=== PATIENT | female | born 1940 | race Caucasian/White ===

== ENCOUNTER 2018-03-09 17:07 | Inpatient (IN) | payer MEDICARE, OTHER ==
[~2018-03-09] VITALS: Ht 162.6 cm; Wt 65.8 kg
[2018-03-09] MEDS ORDERED: ACET-2154 PO (18:11)
[2018-03-09] MEDS ORDERED: Z GUARD REMEDY PASTE 57 GM TUBE TOP PRN (18:15)
[2018-03-09] MEDS ORDERED: MAG355OR18 PO (18:16)
[2018-03-09 18:38] VITALS: BP 137/76
[2018-03-09] MEDS ORDERED: BISA10SU8 RC (19:55)
[2018-03-09] MEDS ORDERED: ASPI-869 PO (19:55)
[2018-03-09] MEDS ORDERED: VALS160T2 PO ×2 (19:55→19:56)
[2018-03-09] MEDS ORDERED: CELE200C PO (19:55)
[2018-03-09] MEDS ORDERED: HYDR12.5 PO (19:55)
[2018-03-09] MEDS ORDERED: GLYC-16 RC (19:55)
[2018-03-09] MEDS ORDERED: DOCU-141 PO (19:55)
[2018-03-09] MEDS ORDERED: BENZ1LOZ58 MM (19:55)
[2018-03-09] MEDS ORDERED: BISA-79 PO (19:55)
[2018-03-09] MEDS ORDERED: TRAM50TA2 PO (19:56)
[2018-03-09] MEDS ORDERED: MAGN400T26 PO (19:56)
[2018-03-09] MEDS ORDERED: MULT1TAB73 PO (19:56)
[2018-03-09] MEDS ORDERED: NA P133E RC (19:56)
[2018-03-09] MEDS ORDERED: MAGN400O6 PO (19:56)
[2018-03-09] MEDS ORDERED: ASCO500W7 PO (19:56)
[2018-03-09] MEDS ORDERED: PANT20TA2 PO (19:56)
[2018-03-09] MEDS ORDERED: THYR30TA2 PO (19:56)
[2018-03-09] MEDS ORDERED: ONDA4TAB11 PO (19:56)
[2018-03-09] MEDS ORDERED: SENN-22 PO (19:56)
[2018-03-09] MEDS ORDERED: OXYC-128 PO (19:56)
[2018-03-09] MEDS ORDERED: MINE133E RC (19:56)
[2018-03-09] MEDS ORDERED: POLY17PO4 PO (19:56)
--- NOTE | 2018-03-09 20:00 | NUR ---
Admitting 77 y/o F to ARU with diagnosis of left total knee replacement done by Dr. Cortez on 03/07. No acute distress noted. Arrived on unit at 1720 and received patient from AM shift. Received pt in bed with family at bedside. Noted with original dressing from surgery, dry and intact. Dr. Singh made aware and per MD, follow-up in AM with surgeon office regarding dressing change. Will endorse to AM shift. A/O x 4, verbally responsive and able to make needs known. Informed hospitalist regarding patient admission and medication reconciliation. Breathing even and unlabored, no SOB noted. All safety measures and fall precautions maintained. Call light and all personal belongings within reach at all times. Will continue to monitor. Will endorse to dayshift.
[2018-03-09 20:12] VITALS: BP 143/66
[2018-03-09] MEDS ORDERED: KETOROLAC TROMETHAMINE 30 MG INJ IM ONE (20:45)
[2018-03-09] MEDS: OXYCODONE/APAP 5-325 MG TABLET PO PRN (21:03)
[2018-03-09] MEDS ORDERED: MAG HYDROX/AL HYDROX/SIMETH 30 ML LIQUID UDC PO PRN (23:15)
[2018-03-09] MEDS ORDERED: ONDANSETRON ODT 4 MG TAB.RAPDIS SL PRN (23:15)
[2018-03-09] MEDS ORDERED: MAGNESIUM HYDROXIDE 30 ML LIQUID UDC PO PRN (23:15)
[2018-03-09] MEDS ORDERED: ACETAMINOPHEN 325 MG TABLET PO PRN (23:15)
[2018-03-09] MEDS ORDERED: GLYCERIN PEDIATRIC RECTAL SUPP EACH RC PRN (23:15)
[2018-03-09] MEDS ORDERED: MINERAL OIL FLEET ENEMA 133 ML BOTTLE RC PRN (23:15)
[2018-03-09] MEDS ORDERED: BISACODYL 10 MG SUPP.RECT RC PRN (23:15)
[2018-03-10] MEDS: OXYCODONE/APAP 5-325 MG TABLET PO PRN (04:22)
[2018-03-10 05:48] VITALS: BP 128/44
[2018-03-10] MEDS ORDERED: MINERAL OIL FLEET ENEMA 133 ML BOTTLE RC PRN (07:15)
[2018-03-10] MEDS ORDERED: GLYCERIN PEDIATRIC RECTAL SUPP EACH RC PRN (07:15)
[2018-03-10 07:32] VITALS: BP 106/55
--- NOTE | 2018-03-10 08:00 | NUR ---
Received patient awake, alert x4. Not in any form of distress, with pain over left knee, surgical dressing dry and intact. Call light within reach. Encouraged to call for needs.
[2018-03-10] MEDS ORDERED: Medication Not On Formulary EA (Thyroid (Armour Thyroid) 30 MG) PO SCH (09:00)
[2018-03-10] MEDS ORDERED: HYDROCHLOROTHIAZIDE 12.5 MG CAPSULE PO SCH (09:00)
[2018-03-10] MEDS: VALSARTAN 160 MG TABLET PO SCH (09:00)
[2018-03-10] MEDS ORDERED: Medication Not On Formulary EA (Multivitamins (Multivitamin) 1 EACH) PO SCH (09:00)
[2018-03-10] MEDS ORDERED: DOCUSATE SODIUM 100 MG CAPSULE PO SCH (09:00)
[2018-03-10] MEDS: DOCUSATE SODIUM 250 MG CAPSULE PO SCH ×2 (09:21→17:40)
[2018-03-10] MEDS: MULTIVITAMINS,THERAPEUTIC TABLET PO SCH (09:21)
[2018-03-10] MEDS: ASPIRIN EC 325 MG TABLET.DR PO SCH (09:22)
[2018-03-10] MEDS: CELECOXIB 200 MG CAPSULE PO SCH ×2 (09:22→17:40)
[2018-03-10] MEDS: ASCORBIC ACID 500 MG TABLET PO SCH (09:22)
[2018-03-10] MEDS: MAGNESIUM OXIDE 400 MG TABLET PO SCH (09:22)
[2018-03-10] MEDS: THYROID 60 MG TABLET PO SCH (09:28)
--- NOTE | 2018-03-10 09:30 | NUR ---
Patient refused Amour Thyroid medication, patient said she takes it after breakfast and she will just take medications the next day. Discussed risks and benefits, patient still refused.
[2018-03-10] MEDS ORDERED: HYDROCORTISONE 1% CREAM 30 GM TUBE TP PRN (11:15)
--- NOTE | 2018-03-10 11:15 | NUR ---
On CMP tolerating well at 64 degrees. Patient complained of itching and over upper left thigh area, informed Dr. Singh, hydrocortisone cream 1% TID PRN ordered.
--- NOTE | 2018-03-10 11:30 | NUR ---
Talked with Hanna from Dr. Cortez's clinic to get orders for surgical wound care. Hanna said she will let person involved know of request.
[2018-03-10] MEDS ORDERED: GLYCERIN ADULT RECTAL SUPP EACH RC PRN (11:45)
--- NOTE | 2018-03-10 14:45 | NUR ---
Referred by RN to visit patient for food preferences and appetite. Patient states prefer small portions. Modify diet. Will send darshana shake once. Patient like everything,encourage pt on menu selection. Pt c/o of constipation, will send prune juice TID with meals, on stool softener. Full nutrition assessment will be as per schedule as per policy. Addendum: 03/10/18 at [address] Amended: Links added.
[2018-03-10 15:02] VITALS: BP 124/61
[2018-03-10] MEDS ORDERED: hydrALAZINE HCL 25 MG TABLET PO PRN (18:00)
[2018-03-10 20:21] VITALS: BP 131/61
--- NOTE | 2018-03-10 20:36 | NUR ---
Received pt resting comfortably in bed. AAO x4. No acute distress noted. No c/o pain or discomfort. Pt stated that she had BM 2 days ago and she's been drinking prune juice today. Encouraged use of call light. Safety measures maintained. Call light and personal belongings within reach. Will continue to monitor.
[2018-03-10] MEDS: PANTOPRAZOLE SODIUM 40 MG TABLET.DR PO SCH (20:52)
[2018-03-10] MEDS: MIRALAX 17 GM POWD.PACK PO SCH (20:52)
[2018-03-11 05:48] VITALS: BP 144/63
[2018-03-11] MEDS: THYROID 60 MG TABLET PO SCH (06:33)
--- NOTE | 2018-03-11 06:58 | NUR ---
Pt slept comfortably at night. Meds given per MD's order. All needs attended to promptly. Assisted to the bathroom as needed using walker. Had small BM last night. Will endorse to day shift RN. Continue to monitor.
[2018-03-11 07:18] LABS: BASOPHILS # (AUTO) 0.1 K/uL (0.0-8.0); BASOPHILS % (AUTO) 0.6 % (0.0-2.0); EOSINOPHILS # (AUTO) 0.4 K/uL (0.0-0.7); EOSINOPHILS % (AUTO) 5.4 % (0.0-7.0); HEMOGLOBIN 10.5 g/dL (10.9-14.3); MEAN CORPUSCULAR HEMOGLOBIN 27.2 uug (24.7-32.8); MEAN CORPUSCULAR HGB CONC 33 g/dL (32.3-35.6); MEAN CORPUSCULAR VOLUME 83.2 fL (75.5-95.3); MONOCYTES # (AUTO) 0.8 K/uL (2.0-10.0); MONOCYTES % (AUTO) 9.9 % (0.0-11.0); NEUTROPHILS # (AUTO) 4.7 K/uL (1.8-8.9); NEUTROPHILS % (AUTO) 59.1 % (38.5-71.5); PLATELET COUNT (AUTO) 227 K/uL (179-408); RED BLOOD CELL COUNT(AUTO) 3.84 MIL/uL (3.63-4.92); WHITE BLOOD COUNT (AUTO) 7.9 K/uL (3.8-11.8)
[2018-03-11 07:36] LABS: THYROID STIMULATING HORMONE 3.167 mIU/mL (0.358-3.740)
[2018-03-11 08:00] VITALS: BP 129/56
[2018-03-11 08:01] LABS: ALANINE AMINOTRANSFERASE 16 U/L (14-59); ALKALINE PHOSPHATASE 66 U/L (50-136); ASPARTATE AMINOTRANSFERASE 22 U/L (15-37); BILIRUBIN,TOTAL 1.1 mg/dL (0.2-1.0); CARBON DIOXIDE 30 mmol/L (21-32); CHLORIDE 105 mmol/L (98-107); CHOLESTEROL 150 mg/dL (<200); CREATININE 0.8 mg/dL (0.6-1.3); GLUCOSE 94 mg/dL (74-106); HDL CHOLESTEROL 57 mg/dL (40-60); MAGNESIUM 2.2 mg/dL (1.8-2.4); PHOSPHOROUS 3.5 mg/dL (2.5-4.9); POTASSIUM 4.5 mmol/L (3.5-5.1); TOTAL PROTEIN, SERUM 6.3 g/dL (6.4-8.2); TRIGLYCERIDES 62 MG/DL (30-150); UREA NITROGEN, BLOOD 11 mg/dL (7-18)
--- NOTE | 2018-03-11 08:30 | NUR ---
Received patient awake, alert x3-4. Patient complained of pain over left knee rated as 9/10 upon movement. Not in any form of distress. Call light within reach. Encouraged to call for needs.
[2018-03-11] MEDS: DOCUSATE SODIUM 250 MG CAPSULE PO SCH ×2 (08:31→17:15)
[2018-03-11] MEDS: MULTIVITAMINS,THERAPEUTIC TABLET PO SCH (08:31)
[2018-03-11] MEDS: MAGNESIUM OXIDE 400 MG TABLET PO SCH (08:31)
[2018-03-11] MEDS: ASPIRIN EC 325 MG TABLET.DR PO SCH (08:31)
[2018-03-11] MEDS: OXYCODONE/APAP 5-325 MG TABLET PO PRN ×2 (08:31→21:16)
[2018-03-11] MEDS: CELECOXIB 200 MG CAPSULE PO SCH ×2 (08:32→17:15)
[2018-03-11] MEDS: ASCORBIC ACID 500 MG TABLET PO SCH (08:32)
[2018-03-11] MEDS: VALSARTAN 160 MG TABLET PO SCH (08:32)
--- NOTE | 2018-03-11 11:00 | NUR ---
Per Dr. Cortez, dressing change to be done 1 week after surgery 03/14/18. Said not remove Aquaphor dressing.
--- NOTE | 2018-03-11 13:19 | NUR ---
INTERDISCIPLINARY TEAM CONFERENCE
[2018-03-11 16:03] VITALS: BP 112/57
[2018-03-11 19:30] VITALS: BP 113/68
--- NOTE | 2018-03-11 20:00 | NUR ---
Patient received at bed sitting awake, alert, and oriented x4. No acute distress or SOB was noted. Her daughter was at the bedside. Complained of left knee pain upon movement. Call light and personal belonging within reach. Continue to monitor.
--- NOTE | 2018-03-11 20:30 | NUR ---
The patient was assessed. The skin under her left thigh was red, warm to touch, and mild edema. Dr. Strong was notified. Patient was scheduled tomorrow morning to have an ultrasound to rule out DVT. Continue to monitor.
[2018-03-11] MEDS: PANTOPRAZOLE SODIUM 40 MG TABLET.DR PO SCH (20:42)
[2018-03-11] MEDS: MIRALAX 17 GM POWD.PACK PO SCH (20:44)
--- NOTE | 2018-03-12 06:10 | NUR ---
End of the shift note Patient awake, Alert, and Oriented X4. No acute distress, or SOB was noted. VS are stable. Bed alarm and bed brake on for safety precaution. Two side rails are up. Pain was assessed and reassessed after pain medication administration. Meds given as ordered. Call light and personal belonging within reach. All needs attended. Will endorse accordingly with the day shift nurse to follow up the Doppler ultrasound of left thigh.
[2018-03-12] MEDS: THYROID 60 MG TABLET PO SCH (06:38)
[2018-03-12 08:16] VITALS: BP 126/59
[2018-03-12] MEDS: OXYCODONE/APAP 5-325 MG TABLET PO PRN ×3 (08:45→20:20)
[2018-03-12] MEDS: VALSARTAN 160 MG TABLET PO SCH (08:47)
[2018-03-12] MEDS: ASCORBIC ACID 500 MG TABLET PO SCH (08:48)
[2018-03-12] MEDS: ASPIRIN EC 325 MG TABLET.DR PO SCH (08:48)
[2018-03-12] MEDS: MAGNESIUM OXIDE 400 MG TABLET PO SCH (08:48)
[2018-03-12] MEDS: DOCUSATE SODIUM 250 MG CAPSULE PO SCH ×2 (08:48→17:00)
[2018-03-12] MEDS: MULTIVITAMINS,THERAPEUTIC TABLET PO SCH (08:48)
[2018-03-12] MEDS: CELECOXIB 200 MG CAPSULE PO SCH ×2 (08:48→17:00)
[2018-03-12 15:48] VITALS: BP 119/65
[2018-03-12 19:30] VITALS: BP 138/65
[2018-03-12] MEDS: PANTOPRAZOLE SODIUM 40 MG TABLET.DR PO SCH (20:20)
[2018-03-12] MEDS: MIRALAX 17 GM POWD.PACK PO SCH (20:20)
--- NOTE | 2018-03-12 20:48 | NUR ---
Received pt resting comfortably in bed. AAO x4. Family at bedside. VSS. No acute distress noted. C/o pain on the left knee especially with movement. Meds given as ordered. Iced pack also given as requested. Encouraged to use call light. Safety measures maintained. Call light and personal belongings within reach. Will continue to monitor.
[2018-03-13] MEDS: OXYCODONE/APAP 5-325 MG TABLET PO PRN ×4 (04:48→22:33)
[2018-03-13] MEDS: THYROID 60 MG TABLET PO SCH (06:25)
[2018-03-13 06:52] VITALS: BP 158/53
[2018-03-13 07:03] VITALS: BP 140/59
[2018-03-13] MEDS: ASCORBIC ACID 500 MG TABLET PO SCH (08:48)
[2018-03-13] MEDS: VALSARTAN 160 MG TABLET PO SCH (08:48)
[2018-03-13] MEDS: MULTIVITAMINS,THERAPEUTIC TABLET PO SCH (08:48)
[2018-03-13] MEDS: DOCUSATE SODIUM 250 MG CAPSULE PO SCH ×2 (08:48→17:17)
[2018-03-13] MEDS: ASPIRIN EC 325 MG TABLET.DR PO SCH (08:48)
[2018-03-13] MEDS: CELECOXIB 200 MG CAPSULE PO SCH ×2 (08:48→17:00)
[2018-03-13] MEDS: MAGNESIUM OXIDE 400 MG TABLET PO SCH (08:48)
--- NOTE | 2018-03-13 10:09 | NUR ---
SBAR report received, board updated. Pt assessed, no acute distress or SOB. Pt reports pain to left knee incision 8/10 upon ambulation to bathroom for voiding. Ice packs refilled and placed around knee. Pt compliant with all routine morning medication. Plan for today, including therapies scheduled. Bed in locked and lowest position, with side rails up x2. Call light and personal belongings placed within reach. Will continue to monitor.
[2018-03-13 16:09] VITALS: BP 132/55
--- NOTE | 2018-03-13 18:49 | NUR ---
All safety and comfort needs met promptly this shift. Family visiting currently at bedside. Assisted to bathroom for voiding x1. Pt compliant with CPM. Reports pain 8/10 upon ambulation. Pain medication administered per PRN orders. Pt compliant with all routine medication. Call light placed within reach. Will continue to monitor and endorse to oncoming security shift supervisor.
[2018-03-13 19:30] VITALS: BP 123/64
[2018-03-13] MEDS: PANTOPRAZOLE SODIUM 40 MG TABLET.DR PO SCH (20:40)
[2018-03-13] MEDS: MIRALAX 17 GM POWD.PACK PO SCH (20:40)
[2018-03-14] MEDS: THYROID 60 MG TABLET PO SCH (06:21)
--- NOTE | 2018-03-14 06:31 | NUR ---
Pt SLEPT WELL THROUGHOUT THE NIGHT, WOKE UP TO USE THE BATHROOM THIS MORNING. CONTINUES TO BE COMPLIANT WITH MEDS AND CARE STAFF, DENIES PAIN, TOLERATED MEDS WELL. Pt BACK IN BED SLEEPING, DUE FOR SURGICAL DRESSING CHANGE TODAY PER SURGEON, WILL ENDORSE TO DAY SHIFT NURSE TO TAKE PHOTO OF SURGICAL INCISION DURING DRESSING CHANGE.
--- NOTE | 2018-03-14 07:40 | NUR ---
SBAR report received, board updated. Pt assessed, no acute distress noted. All comfort and safety measures met at this time. Plan for today discussed. Bed in locked and lowest position with side rails up x2. Call light placed within reach. Will continue to monitor.
[2018-03-14] MEDS: MULTIVITAMINS,THERAPEUTIC TABLET PO SCH (08:11)
[2018-03-14] MEDS: DOCUSATE SODIUM 250 MG CAPSULE PO SCH ×2 (08:11→17:00)
[2018-03-14] MEDS: ASCORBIC ACID 500 MG TABLET PO SCH (08:11)
[2018-03-14] MEDS: ASPIRIN EC 325 MG TABLET.DR PO SCH (08:11)
[2018-03-14] MEDS: MAGNESIUM OXIDE 400 MG TABLET PO SCH (08:12)
[2018-03-14] MEDS: VALSARTAN 160 MG TABLET PO SCH (08:12)
[2018-03-14] MEDS: CELECOXIB 200 MG CAPSULE PO SCH ×2 (08:13→17:00)
[2018-03-14 08:25] VITALS: BP 133/70
[2018-03-14] MEDS: OXYCODONE/APAP 5-325 MG TABLET PO PRN ×2 (11:59→20:44)
--- NOTE | 2018-03-14 18:53 | NUR ---
Pt has remained in stable condition throughout this shift. Incisional wound care provided as ordered, dressing changed. No s/s of infection. All safety and comfort needs met promptly. Family visiting at bedside. Call light placed within reach. Will continue to monitor and endorse to on coming regional merchandising manager.
[2018-03-14 19:30] VITALS: BP 153/63
--- NOTE | 2018-03-14 19:45 | NUR ---
Received pt eating dinner. Daughter at bedside. AAO x4. No acute distress noted. No c/o pain or discomfort at this time. Assisted to the bathroom, using walker, standby assist. Safety measures maintained. Call light and personal belongings within reach. Will continue to monitor.
[2018-03-14] MEDS: MIRALAX 17 GM POWD.PACK PO SCH (20:01)
[2018-03-14] MEDS: PANTOPRAZOLE SODIUM 40 MG TABLET.DR PO SCH (20:01)
[2018-03-14 20:51] VITALS: BP 153/63
--- NOTE | 2018-03-14 22:31 | NUR ---
Pt requested to ambulate around the unit. Ambulated using walker and standby assist. Pt is now back to bed. Will continue to monitor.
[2018-03-15] MEDS: OXYCODONE/APAP 5-325 MG TABLET PO PRN ×4 (04:58→20:17)
[2018-03-15] MEDS: THYROID 60 MG TABLET PO SCH (06:30)
[2018-03-15] MEDS: ASPIRIN EC 325 MG TABLET.DR PO SCH (08:05)
[2018-03-15] MEDS: MULTIVITAMINS,THERAPEUTIC TABLET PO SCH (08:05)
[2018-03-15] MEDS: MAGNESIUM OXIDE 400 MG TABLET PO SCH (08:05)
[2018-03-15] MEDS: ASCORBIC ACID 500 MG TABLET PO SCH (08:05)
[2018-03-15] MEDS: VALSARTAN 160 MG TABLET PO SCH (08:06)
[2018-03-15] MEDS: CELECOXIB 200 MG CAPSULE PO SCH ×2 (08:07→16:02)
[2018-03-15] MEDS: DOCUSATE SODIUM 250 MG CAPSULE PO SCH ×2 (08:07→16:02)
--- NOTE | 2018-03-15 08:29 | NUR ---
SBAR report received, board updated. Pt assessed, no acute distress noted. Pt compliant with all morning medications, refusing Colace and Arthritis medications. breakfast served immediately to remain hot. All safety and comfort needs met. Pt denies pain at this time. Bed in locked and lowest position. Call light within reach. Will continue to monitor.
[2018-03-15 08:31] VITALS: BP 142/64
[2018-03-15 20:15] VITALS: BP 137/52
[2018-03-15] MEDS: PANTOPRAZOLE SODIUM 40 MG TABLET.DR PO SCH (20:17)
[2018-03-15] MEDS: MIRALAX 17 GM POWD.PACK PO SCH (20:17)
[2018-03-16] MEDS: OXYCODONE/APAP 5-325 MG TABLET PO PRN ×5 (03:38→23:21)
[2018-03-16 05:08] VITALS: BP 122/69
--- NOTE | 2018-03-16 05:19 | NUR ---
Patient slept well throughout the night , pain medication given x 2 throughout the shift , no BM during shift . Changed the dressing , no signs of infection , vital signs stable , no change in LOC , patient calm and cooperative. Addendum: 03/16/18 at 0529 by JUAN DALEY RN Bed in locked position , call light on , bed in low position , 3 side rails up , walker at bedside for assistance .
[2018-03-16] MEDS: THYROID 60 MG TABLET PO SCH (06:30)
[2018-03-16 07:45] LABS: BASOPHILS % (AUTO) 0.5 % (0.0-2.0); EOSINOPHILS # (AUTO) 0.4 K/uL (0.0-0.7); EOSINOPHILS % (AUTO) 6.5 % (0.0-7.0); HEMATOCRIT 28.2 % (31.2-41.9); HEMOGLOBIN 9.2 g/dL (10.9-14.3); LYMPHOCYTES # (AUTO) 1.8 K/uL (20.0-40.0); LYMPHOCYTES % (AUTO) 26.7 % (20.5-51.5); MEAN CORPUSCULAR HEMOGLOBIN 27.6 uug (24.7-32.8); MEAN CORPUSCULAR HGB CONC 33 g/dL (32.3-35.6); MEAN CORPUSCULAR VOLUME 84.6 fL (75.5-95.3); MONOCYTES # (AUTO) 0.8 K/uL (2.0-10.0); MONOCYTES % (AUTO) 12.2 % (0.0-11.0); NEUTROPHILS # (AUTO) 3.7 K/uL (1.8-8.9); NEUTROPHILS % (AUTO) 54.1 % (38.5-71.5); PLATELET COUNT (AUTO) 282 K/uL (179-408); RED BLOOD CELL COUNT(AUTO) 3.33 MIL/uL (3.63-4.92); WHITE BLOOD COUNT (AUTO) 6.9 K/uL (3.8-11.8)
--- NOTE | 2018-03-16 07:46 | NUR ---
Patient assisted to restroom at this time via walker, complaints of left knee pain noted, no signs of distress, bathroom call light in reach, all needs met at this time
[2018-03-16 08:09] LABS: ALANINE AMINOTRANSFERASE 25 U/L (14-59); ALKALINE PHOSPHATASE 76 U/L (50-136); ASPARTATE AMINOTRANSFERASE 27 U/L (15-37); BILIRUBIN,TOTAL 0.6 mg/dL (0.2-1.0); CARBON DIOXIDE 28 mmol/L (21-32); CHLORIDE 105 mmol/L (98-107); CREATININE 0.9 mg/dL (0.6-1.3); GLUCOSE 93 mg/dL (74-106); MAGNESIUM 2.3 mg/dL (1.8-2.4); PHOSPHOROUS 4.1 mg/dL (2.5-4.9); POTASSIUM 4.4 mmol/L (3.5-5.1); TOTAL PROTEIN, SERUM 6.5 g/dL (6.4-8.2); UREA NITROGEN, BLOOD 14 mg/dL (7-18)
[2018-03-16 08:13] VITALS: BP 125/65
[2018-03-16 08:43] LABS: IRON, SERUM 42 ug/dL (50-175)
[2018-03-16] MEDS: MAGNESIUM OXIDE 400 MG TABLET PO SCH (08:59)
[2018-03-16] MEDS: ASCORBIC ACID 500 MG TABLET PO SCH (08:59)
[2018-03-16] MEDS: MULTIVITAMINS,THERAPEUTIC TABLET PO SCH (08:59)
[2018-03-16] MEDS: DOCUSATE SODIUM 250 MG CAPSULE PO SCH ×2 (09:00→17:00)
[2018-03-16] MEDS: ASPIRIN EC 325 MG TABLET.DR PO SCH (09:00)
[2018-03-16] MEDS: VALSARTAN 160 MG TABLET PO SCH (09:00)
[2018-03-16] MEDS: CELECOXIB 200 MG CAPSULE PO SCH ×2 (09:00→17:00)
--- NOTE | 2018-03-16 17:41 | NUR ---
Patient refused all celebrix and colace this shift
[2018-03-16 20:02] VITALS: BP 124/65
[2018-03-16] MEDS: PANTOPRAZOLE SODIUM 40 MG TABLET.DR PO SCH (20:23)
[2018-03-16] MEDS: MIRALAX 17 GM POWD.PACK PO SCH (20:27)
[2018-03-17 05:25] VITALS: BP 145/77
--- NOTE | 2018-03-17 05:50 | NUR ---
Patient slept well throughout the night , alert and oriented x 4 , vital signs stable , patient had a shower last night and dressing was changed . No signs of infection on wound , sglue on top of wound . Patient given pain meds upon request , were effective . No signs of distress . The bed is in low position , is locked , 3 side rails up , and the call light on and esy access. Pt had no BM during shift .
[2018-03-17] MEDS: THYROID 60 MG TABLET PO SCH (06:18)
[2018-03-17] MEDS: CELECOXIB 200 MG CAPSULE PO SCH ×2 (09:00→17:00)
[2018-03-17] MEDS: VALSARTAN 160 MG TABLET PO SCH (09:21)
[2018-03-17] MEDS: ASCORBIC ACID 500 MG TABLET PO SCH (09:22)
[2018-03-17] MEDS: MAGNESIUM OXIDE 400 MG TABLET PO SCH (09:22)
[2018-03-17] MEDS: ASPIRIN EC 325 MG TABLET.DR PO SCH (09:22)
[2018-03-17] MEDS: DOCUSATE SODIUM 250 MG CAPSULE PO SCH ×2 (09:22→17:00)
[2018-03-17] MEDS: MULTIVITAMINS,THERAPEUTIC TABLET PO SCH (09:22)
[2018-03-17 09:36] VITALS: BP 137/65
[2018-03-17] MEDS: OXYCODONE/APAP 5-325 MG TABLET PO PRN ×2 (09:57→22:11)
[2018-03-17 15:55] VITALS: BP 121/61
--- NOTE | 2018-03-17 18:07 | NUR ---
pt stable throuhgout the day. pt refused celebrex and colace. pt given pain meds as needed. vitals stable. no signs of acute distress. will continue monitor.
[2018-03-17 19:30] VITALS: BP 137/68
[2018-03-17] MEDS: MIRALAX 17 GM POWD.PACK PO SCH (20:29)
[2018-03-17] MEDS: PANTOPRAZOLE SODIUM 40 MG TABLET.DR PO SCH (20:29)
--- NOTE | 2018-03-18 05:35 | NUR ---
quiet night. slept well most of the shift. compliant with meds.no acute distress noted. minimal assist with ADL's. needs attended. ambulates to the BR with walker. voiding without any difficulty. pain meds given as ordered. will monitor patient. VSS.
[2018-03-18] MEDS: THYROID 60 MG TABLET PO SCH (06:17)
[2018-03-18 06:59] VITALS: BP 146/71
[2018-03-18] MEDS: OXYCODONE/APAP 5-325 MG TABLET PO PRN (07:52)
[2018-03-18] MEDS: ASPIRIN EC 325 MG TABLET.DR PO SCH (07:56)
[2018-03-18] MEDS: ASCORBIC ACID 500 MG TABLET PO SCH (07:56)
[2018-03-18] MEDS: MAGNESIUM OXIDE 400 MG TABLET PO SCH (07:56)
[2018-03-18] MEDS: MULTIVITAMINS,THERAPEUTIC TABLET PO SCH (07:56)
[2018-03-18] MEDS: VALSARTAN 160 MG TABLET PO SCH (07:56)
[2018-03-18] MEDS: CELECOXIB 200 MG CAPSULE PO SCH (07:56)
[2018-03-18] MEDS: DOCUSATE SODIUM 250 MG CAPSULE PO SCH (07:56)
[2018-03-18 08:00] VITALS: BP 143/59
--- NOTE | 2018-03-18 13:41 | NUR ---
INTERDISCIPLINARY TEAM CONFERENCE
--- NOTE | 2018-03-18 15:36 | NUR ---
pt stable during discharge. pt given dc instructions including follow up care, home health treatments and prescribed medications. pt verbalizes understainding. pt signed belongings list along with dc summary. wound photos taken and placed in chart. no signs of infections. pt given original copy of prescriptions and summary. prescription faxed. no sob during discharge. pt left to home with family private transportation.
== END 2018-03-18 13:30 | disposition home health service (06) | DRG 560 ==
PROVIDERS: ADMIT Physical Medicine & Rehabilitation Pain Medicine; ATTEND Physical Medicine & Rehabilitation Pain Medicine
DX: Z47.1 Aftercare following joint replacement surgery (principal); D68.59 Other primary thrombophilia; Z96.652 Presence of left artificial knee joint; M17.11 Unilateral primary osteoarthritis, right knee; E03.9 Hypothyroidism, unspecified; I10 Essential (primary) hypertension; M47.816 Spondylosis without myelopathy or radiculopathy, lumbar region; Z90.710 Acquired absence of both cervix and uterus; D64.9 Anemia, unspecified; Z88.0 Allergy status to penicillin
CPT/HCPCS: 36415; 73560; 82306; 83550; 83735; 84100; 84443; 85025; 92526; 92610; 97110; 97112; 97116; 97530; 97535; A4663; J1885; Q0162